=== PATIENT | female | born 2000 | race Caucasian/White ===

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

== ENCOUNTER 2020-09-07 17:47 | Emergency (ER) | payer OTHER ==
[~2020-09-07] VITALS: Ht 165.1 cm; Wt 54.4 kg
[2020-09-07] MEDS ORDERED: IBU600 M1 PO (21:44)
== END 2020-09-07 21:54 | disposition home or self-care (01) ==
LOC: ED 17:47
DX: R07.2 Precordial pain (principal); Z79.2 Long term (current) use of antibiotics; V43.92XA Unspecified car occupant injured in collision with other type car in traffic accident, initial encounter; Y93.89 Activity, other specified; Y92.488 Other paved roadways as the place of occurrence of the external cause; Y99.8 Other external cause status